=== PATIENT | female | born 1995 | race Caucasian/White ===

== ENCOUNTER 2021-07-26 06:32 | Emergency (ER) | payer OTHER ==
[~2021-07-26] VITALS: Ht 152.4 cm; Wt 56.0 kg
[2021-07-26] MEDS ORDERED: ACETAMINOPHEN 325MG TABLET PO STA (07:02)
[2021-07-26 08:00] LABS: BASOPHILS % 0.1 % (0.0-2.0); HEMATOCRIT. 38.8 % (36.0-48.0); HEMOGLOBIN. 13.4 g/dL (12.0-16.0); LYMPHOCYTES % 21.4 % (20.0-50.0); MEAN CORPUSCULAR HEMOGLOBIN 31.8 pg (28.0-32.0); MEAN PLATELET VOLUME 8.7 fl (7.4-10.4); MONOCYTES % 7.7 % (2.0-8.0); NEUTROPHILS % 69.8 % (40.0-76.0); PLATELET 247 x1000/uL (130-400); RED BLOOD CELL COUNT 4.22 mill/uL (4.2-5.4); RED CELL DISTRIBUTION WIDTH 13.3 % (11.6-14.6)
[2021-07-26 08:06] LABS: CHLORIDE 110 mEq/L (98-107)
[2021-07-26 08:17] LABS: B-HCG QUANTITATIVE 555 mIU/mL (<3)
[2021-07-26 10:06] LABS: CLARITY URINE CLEAR (CLEAR); COLOR URINE YELLOW (YELLOW); KETONES URINE NEGATIVE (NEGATIVE); LEUKOCYTE ESTERASE URINE NEGATIVE (NEGATIVE); NITRITE URINE NEGATIVE (NEGATIVE); OCCULT BLOOD URINE 3+ (NEGATIVE); PROTEIN URINE NEGATIVE (NEGATIVE); SPECIFIC GRAVITY URINE 1.014 (1.005-1.030); UROBILINOGEN URINE 0.2 E.U./dL (0.2-1.0)
[2021-07-26 10:30] VITALS: BP 119/71
== END 2021-07-26 10:35 | disposition home or self-care (01) ==
LOC: ER 06:50
DX: O20.0 Threatened abortion (principal); Z3A.14 14 weeks gestation of pregnancy; Z98.890 Other specified postprocedural states
CPT/HCPCS: 36415; 76801; 80053; 81003; 81025; 84702; 85025; 86850; 86900; 99284